=== PATIENT | female | born 1995 | race Two or more races ===

== ENCOUNTER 2019-07-04 05:39 | Inpatient (IN) ==
[2019-07-04] MEDS ORDERED: FAMOTIDINE 20 MG/2 ML VIAL IV ONE (05:53)
[2019-07-04] MEDS ORDERED: CLINDAMYCIN INJ 900 MG in PREMIX 1 EACH IV ONE (05:53)
[2019-07-04] MEDS ORDERED: CITRIC ACID/SODIUM CITRATE 30 ML UDCUP PO ONE (05:53)
[2019-07-04] MEDS ORDERED: LACTATED RINGERS 1,000 ML IV SCH ×2 (06:00→10:00)
[2019-07-04 06:14] LABS: Basophils % 0.4 % (0.0-0.8); Eosinophils % 0.4 % (0.00-10.9); Hematocrit 33.2 VOL% (35.7-47.0); Hemoglobin 10.5 GM/DL (12.0-16.0); Immature Granulocytes % 0.7 %; Immature Granulocytes Absolute 0.05 #; Lymphocytes # 1.7 10*3/uL (1.4-4.0); Lymphocytes % 24.7 % (21.3-54.2); Mean Corpuscular HGB Conc 31.6 GM/DL (32-36); Mean Corpuscular Volume 79.2 FL (87-102); Mean Platelet Volume 10.5 FL (9.6-12.0); Monocytes % 7.6 % (1.7-12.7); Neutrophils % 66.2 % (38.7-73.9); Platelet Count 224 T/CUMM (130-400); Red Blood Count 4.19 MC/CUMM (3.8-5.5); Red Cell Distribution Width 14.7 % (9.3-17.3); White Blood Count 6.7 T/CUMM (4-12)
[2019-07-04 06:39] LABS: Albumin 2.8 G/DL (3.4-5.0); Osmolality,Calculated 261.4 MOS/KG (273-304); Total Protein 7.6 G/DL (6.4-8.3)
[2019-07-04] MEDS ORDERED: OXYTOCIN 10 UNIT/ML VIAL IM ONE (08:00)
[2019-07-04] MEDS ORDERED: OXYTOCIN/LR 30 UNIT/1,000 ML BAG IV ONE (08:00)
[2019-07-04 09:53] LABS: Cord Arterial Blood HCO3 21.2 MMOL/L
[2019-07-04 09:55] LABS: Apearance,Urine CLEAR (Clear); Bacteria,Urine Occasional /HPF (Few); Bilirubin,Urine Negative (Negative); Blood, Urine Negative (Negative); Glucose,Urine (UA) Negative (Negative); Ketones,Urine 20 mg/dL (Negative); Mucus,Urine Occasional /LPF (Occasional); Nitrite,Urine Negative (Negative); Protein,Urine Negative; RBC,Urine <1 /HPF (0-4); Urine Color Yellow (Yellow); Urine Specific Gravity 1.012 (1.001-1.035); WBC,Urine <1 /HPF (0-6)
[2019-07-04 09:57] LABS: Cord Venous Blood HCO3 21.9 MMOL/L; Cord Venous Blood PCO2 42.2 MMHG
[2019-07-04] MEDS ORDERED: OXYTOCIN/LR 20 UNIT/1,000 ML BAG IV ONE (09:57)
[2019-07-04] MEDS ORDERED: ONDANSETRON 4 MG/2 ML VIAL IV PRN (09:57)
[2019-07-04] MEDS ORDERED: ACETAMINOPHEN 325 MG TABLET PO PRN (09:57)
[2019-07-04] MEDS ORDERED: RHO(D) IMMUNE GLOBULIN 300 MCG SYRINGE IM ONE (09:57)
[2019-07-04] MEDS ORDERED: PHENYLEPHRINE 1 MG/10 ML SYRINGE IV ONE ×2 (10:57→10:59)
[2019-07-04] MEDS ORDERED: MORPHINE 10 MG/10 ML VIAL ONE (10:58)
[2019-07-04] MEDS ORDERED: BUPIVACAINE SPINAL 0.75% 2 ML AMP SPINAL ONE (10:59)
[2019-07-04] MEDS ORDERED: HYDROmorphone 2 MG/1 ML VIAL IV PRN (12:32)
[2019-07-04] MEDS ORDERED: diphenhydrAMINE 50 MG/1 ML VIAL IV PRN (12:32)
[2019-07-04] MEDS ORDERED: hydrOXYzine HCL 25 MG/1 ML VIAL IM PRN (12:32)
[2019-07-04] MEDS: ceFAZolin 1,000 MG in SYRINGE 1 EACH IV SCH (17:15)
[2019-07-04 18:23] LABS: Basophils % 0.4 % (0.0-0.8); Eosinophils % 0.2 % (0.00-10.9); Hematocrit 30.2 VOL% (35.7-47.0); Hemoglobin 9.5 GM/DL (12.0-16.0); Immature Granulocytes % 0.4 %; Immature Granulocytes Absolute 0.04 #; Lymphocytes # 1.5 10*3/uL (1.4-4.0); Lymphocytes % 16.5 % (21.3-54.2); Mean Corpuscular HGB Conc 31.5 GM/DL (32-36); Mean Corpuscular Volume 79.3 FL (87-102); Neutrophils % 73.5 % (38.7-73.9); Platelet Count 199 T/CUMM (130-400); Red Blood Count 3.81 MC/CUMM (3.8-5.5); Red Cell Distribution Width 14.6 % (9.3-17.3)
[2019-07-04 18:25] LABS: White Blood Count 9.4 T/CUMM (4-12)
[2019-07-04] MEDS: POTASSIUM CHLORIDE 20 MEQ TABLET PO SCH (21:17)
[2019-07-04] MEDS: levETIRAcetam 500 MG TABLET PO SCH (21:17)
[2019-07-04] MEDS: DOCUSATE SODIUM 100 MG CAPSULE PO SCH (21:17)
[2019-07-05] MEDS: ceFAZolin 1,000 MG in SYRINGE 1 EACH IV SCH (01:56)
[2019-07-05 06:28] LABS: Basophils % 0.4 % (0.0-0.8); Eosinophils % 0.4 % (0.00-10.9); Hematocrit 28.9 VOL% (35.7-47.0); Hemoglobin 9.2 GM/DL (12.0-16.0); Immature Granulocytes % 0.5 %; Immature Granulocytes Absolute 0.04 #; Lymphocytes # 1.3 10*3/uL (1.4-4.0); Lymphocytes % 16.2 % (21.3-54.2); Mean Corpuscular HGB Conc 31.8 GM/DL (32-36); Mean Corpuscular Volume 78.5 FL (87-102); Mean Platelet Volume 10.3 FL (9.6-12.0); Monocytes % 9.9 % (1.7-12.7); Neutrophils % 72.6 % (38.7-73.9); Platelet Count 200 T/CUMM (130-400); Red Blood Count 3.68 MC/CUMM (3.8-5.5); Red Cell Distribution Width 14.6 % (9.3-17.3)
[2019-07-05] MEDS: IBUPROFEN 800 MG TABLET PO PRN ×2 (09:32→20:50)
[2019-07-05] MEDS: MAGNESIUM HYDROXIDE SUSP 30 ML UDCUP PO PRN (09:48)
[2019-07-05] MEDS: METOCLOPRAMIDE 10 MG TABLET PO SCH ×2 (09:49→16:00)
[2019-07-05] MEDS: SIMETHICONE CHEW 80 MG TABLET PO PRN (09:50)
[2019-07-05] MEDS: POTASSIUM CHLORIDE 20 MEQ TABLET PO SCH ×2 (09:50→20:50)
[2019-07-05] MEDS: levETIRAcetam 500 MG TABLET PO SCH ×2 (09:50→20:50)
[2019-07-05] MEDS: MULTIVITAMIN (PRENATAL) TABLET PO SCH (09:50)
[2019-07-05] MEDS: DOCUSATE SODIUM 100 MG CAPSULE PO SCH ×2 (09:51→20:50)
[2019-07-05] MEDS: FERROUS SULFATE 325 MG TABLET PO SCH (20:50)
[2019-07-06] MEDS: METOCLOPRAMIDE 10 MG TABLET PO SCH ×3 (02:33→18:37)
[2019-07-06] MEDS: POTASSIUM CHLORIDE 20 MEQ TABLET PO SCH ×2 (08:25→21:18)
[2019-07-06] MEDS: FERROUS SULFATE 325 MG TABLET PO SCH ×2 (08:26→20:01)
[2019-07-06] MEDS: MAGNESIUM HYDROXIDE SUSP 30 ML UDCUP PO PRN (08:26)
[2019-07-06] MEDS: SIMETHICONE CHEW 80 MG TABLET PO PRN (08:26)
[2019-07-06] MEDS: MULTIVITAMIN (PRENATAL) TABLET PO SCH (08:26)
[2019-07-06] MEDS: DOCUSATE SODIUM 100 MG CAPSULE PO SCH ×2 (08:26→20:01)
[2019-07-06] MEDS: levETIRAcetam 500 MG TABLET PO SCH ×2 (08:40→20:01)
[2019-07-06] MEDS ORDERED: INFLUENZA VIRUS VACCINE 0.5 ML SYRINGE IM ONE (09:00)
[2019-07-06] MEDS: IBUPROFEN 800 MG TABLET PO PRN (20:01)
[2019-07-07] MEDS: MULTIVITAMIN (PRENATAL) TABLET PO SCH (09:59)
[2019-07-07] MEDS: FERROUS SULFATE 325 MG TABLET PO SCH (10:00)
[2019-07-07] MEDS: DOCUSATE SODIUM 100 MG CAPSULE PO SCH (10:01)
[2019-07-07] MEDS: POTASSIUM CHLORIDE 20 MEQ TABLET PO SCH (10:01)
[2019-07-07] MEDS: levETIRAcetam 500 MG TABLET PO SCH (10:01)
[2019-07-07] MEDS: SIMETHICONE CHEW 80 MG TABLET PO PRN (10:01)
[2019-07-07] MEDS: METOCLOPRAMIDE 10 MG TABLET PO SCH (10:03)
[2019-07-07 10:24] VITALS: BP 95/61
[2019-07-07] MEDS ORDERED: INFLUENZA VIRUS VACCINE 0.5 ML SYRINGE IM ONE (11:49)
== END 2019-07-07 12:55 | disposition home or self-care (01) | DRG 540 ==
LOC: N.LD 05:39 → N.OB 13:29
PROVIDERS: ADMIT Obstetrics & Gynecology; ATTEND Obstetrics & Gynecology
PROC: LDCSECT (ICD-10-PCS; 2019-07-04 09:15)